=== PATIENT | female | born 1960 | race Caucasian/White ===

== ENCOUNTER 2018-04-08 20:17 | Emergency (ER) | payer BC, OTHER ==
--- NOTE | 2018-04-08 20:57 | ER Document Report ---
ED Medical Screen (RME) - General Chief Complaint: Arm Pain Stated Complaint: RIGHT ARM PAIN Time Seen by Provider: 04/08/18 20:28 Notes: RAPID MEDICAL EVALUATION DISCLOSURE I have seen this patient as part of a Rapid Medical Evaluation and, if applicable, placed any initially appropriate orders. The patient will be seen and fully evaluated, including a full history and physical exam, by a provider ( in Main ED or Fast Track) when a room becomes available. 57-year-old female here with complaints of right upper extremity pain weakness and heaviness that started approximately 12 hours ago. 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 She has not taken anything for the symptoms. She does not have any chest pain shortness of breath palpitations facial asymmetry slurred speech headache vision change. She denies any previous history of stroke. She had similar symptoms one year ago when she was diagnosed with endocarditis however, at that time, she also had shortness of breath and fevers and today does not have these additional symptoms. EXAM CTAB RRR RUE strength 4/5 with intact sensation All other extremities strength 5/5 with intact sensation Finger to nose coordination intact TRAVEL OUTSIDE OF THE [place] IN LAST 30 DAYS: No - Related Data Allergies/Adverse Reactions: No Known Allergies Allergy (Unverified 02/04/12 08:27) Past Medical History - Social History Frequency of alcohol use: Occasional Drug Abuse: None Renal/ Medical History: Denies: Hx Peritoneal Dialysis Musculoskeltal Medical History: Reports Hx Arthritis Past Surgical History: Reports: Hx Tubal Ligation - Immunizations Hx Diphtheria, Pertussis, Tetanus Vaccination: No Physical Exam - Vital signs Vitals: Temp Pulse Resp BP Pulse Ox 99.1 F 62 16 146/58 H 99 04/08/18 20:24 04/08/18 20:24 04/08/18 20:24 04/08/18 20:24 04/08/18 20:24 Course - Vital Signs Vital signs: Temp Pulse Resp BP Pulse Ox 99.1 F 62 16 146/58 H 99 04/08/18 20:24 04/08/18 20:24 04/08/18 20:24 04/08/18 20:24 04/08/18 20:24 Doctor's Discharge - Discharge Referrals: ANU BARROS MD [Primary Care Provider] - Follow up as needed
[2018-04-08 21:18] LABS: ABSOLUTE BASOPHILS # (AUTO) 0.1 10^3/uL (0.0-0.2); ABSOLUTE EOSINOPHILS # (AUTO) 0.2 10^3/uL (0.0-0.6); ABSOLUTE LYMPHOCYTES (AUTO) 1.9 10^3/uL (0.5-4.7); ABSOLUTE MONOCYTES (AUTO) 0.6 10^3/uL (0.1-1.4); ABSOLUTE NEUT (AUTO) 4.8 10^3/uL (1.7-8.2); BASOPHILS % (AUTO) 0.7 % (0-2); HEMATOCRIT 40.2 % (36.0-47.0); HEMOGLOBIN 13.6 g/dL (12.0-15.5); LYMPHOCYTES % (AUTO) 25.6 % (13-45); MEAN CORPUSCULAR VOLUME 91 fl (80-97); MONOCYTES % (AUTO) 8.1 % (3-13); PLATELET COUNT 351 10^3/uL (150-450); RED CELL DISTRIBUTION WIDTH 13.3 % (11.5-14.0); SEGMENTED NEUTROPHILS % (AUTO) 63.6 % (42-78); TOTAL CELLS COUNTED % (AUTO) 100 %; WHITE BLOOD COUNT 7.6 10^3/uL (4.0-10.5)
[2018-04-08 21:25] LABS: INTERNATIONAL RATION (INR) 0.85; PROTHROMBIN TIME 12.1 SEC (11.4-15.4)
[2018-04-08 21:26] LABS: ANION GAP 13 (5-19); BLOOD UREA NITROGEN 23 mg/dL (7-20); CALCIUM 9.9 mg/dL (8.4-10.2); CARBON DIOXIDE 24 mmol/L (22-30); CHLORIDE 106 mmol/L (98-107); GLUCOSE 99 mg/dL (75-110); PARTIAL THROMBOPLASTIN TIME 25.6 SEC (23.5-35.8); POTASSIUM 4.4 mmol/L (3.6-5.0); SODIUM 142.9 mmol/L (137-145)
--- NOTE | 2018-04-08 21:31 | RADIOLOGY REPORT (SQ) ---
EXAM DESCRIPTION: CHEST 2 VIEWS COMPLETED DATE/TIME: 04/08/2018 9:16 pm REASON FOR STUDY: CP endocarditis? COMPARISON: 06/29/2014 EXAM PARAMETERS: NUMBER OF VIEWS: two views TECHNIQUE: Digital Frontal and Lateral radiographic views of the chest acquired. RADIATION DOSE: NA LIMITATIONS: none FINDINGS: LUNGS AND PLEURA: No opacities, masses or pneumothorax. No pleural effusion. MEDIASTINUM AND HILAR STRUCTURES: No masses or contour abnormalities. HEART AND VASCULAR STRUCTURES: Heart normal size. No evidence for failure. BONES: No acute findings. HARDWARE: None in the chest. OTHER: No other significant finding. IMPRESSION: NO ACUTE RADIOGRAPHIC FINDING IN THE CHEST. TECHNICAL DOCUMENTATION: JOB ID: [id number] [employer]- All Rights Reserved Reading location - IP/workstation name: [email or web address]
--- NOTE | 2018-04-08 21:44 | RADIOLOGY REPORT (SQ) ---
EXAM DESCRIPTION: CT HEAD WITHOUT COMPLETED DATE/TIME: 04/08/2018 9:23 pm REASON FOR STUDY: RUE weakness; eval infarct COMPARISON: None. TECHNIQUE: Axial images acquired through the brain without intravenous contrast. Images reviewed wi th bone, brain and subdural windows. Additional sagittal and coronal reconstructions were generated. Images stored on PACS. All CT scanners at this facility use dose modulation, iterative reconstruction, and/or weight based d osing when appropriate to reduce radiation dose to as low as reasonably achievable (ALARA). [facility]: Dose Right [facility]: CareDose [facility]: Dose Right [facility]: Teradose 4D [facility]: Smart [place] RADIATION DOSE: CT Rad equipment meets quality standard of care and radiation dose reduction techniq ues were employed. CTDIvol: 48.6 mGy. DLP: 856 mGy-cm. mGy. LIMITATIONS: None. FINDINGS: VENTRICLES: Normal size and contour. CEREBRUM: No masses. No hemorrhage. No midline shift. No evidence for acute infarction. Normal gra y/white matter differentiation. No areas of low density in the white matter. CEREBELLUM: No masses. No hemorrhage. No alteration of density. No evidence for acute infarction. EXTRAAXIAL SPACES: No fluid collections. No masses. ORBITS AND GLOBE: No intra- or extraconal masses. Normal contour of globe without masses. CALVARIUM: No fracture. PARANASAL SINUSES: No fluid or mucosal thickening. SOFT TISSUES: No mass or hematoma. OTHER: No other significant finding. IMPRESSION: NORMAL BRAIN CT WITHOUT CONTRAST. EVIDENCE OF ACUTE STROKE: NO. COMMENT: Quality ID # [id number]: Final reports with documentation of one or more dose reduction techniques (e.g., Automated exposure control, adjustment of the mA and/or kV according to patient size, use of iterative reconstruction technique) TECHNICAL DOCUMENTATION: JOB ID: [id number] [employer]- All Rights Reserved Reading location - IP/workstation name: [email or web address]
[2018-04-08 23:05] VITALS: BP 133/60
[2018-04-08] MEDS ORDERED: NAPROXEN 250 MG TABLET PO ONE (23:12)
[2018-04-08] MEDS ORDERED: LIDOCAINE 5% (700 MG) TRANSDERMAL ADH..PATCH TP ONE (23:12)
[2018-04-08] MEDS ORDERED: ACETAMINOPHEN 325 MG TABLET PO ONE (23:12)
--- NOTE | 2018-04-08 23:13 | ER Document Report ---
ED General - General Chief Complaint: Arm Pain Stated Complaint: RIGHT ARM PAIN Time Seen by Provider: 04/08/18 20:28 Notes: Patient is a 57 year old female with a past medical history of pericarditis ( please note that the triage assessment is inaccurate and the patient never had endocarditis) but no additional chronic medical problems who presents with approximately 12 hours of left upper extremity pain and heaviness. She describes the pain in the right upper cavity as being a constant, shooting, burning pain that is worsened by movement of her neck or arm. Nothing improves the pain although the patient did take naproxen at home. She has not seen her general doctor regarding today's concerns. She notes that although the area does feel "like it is asleep" she denies any loss of sensation or loss of motor function. She denies a history of similar symptoms in the past. She denies any fever or constitutional symptoms. She denies any discomfort in any other area of her body. No known trauma to the area. TRAVEL OUTSIDE OF THE [place] IN LAST 30 DAYS: No - Related Data Allergies/Adverse Reactions: No Known Allergies Allergy (Verified 04/08/18 22:06) Past Medical History - General Information source: Patient, Relative - Social History Smoking Status: Never Smoker Frequency of alcohol use: Occasional Drug Abuse: None Lives with: Family Family History: Reviewed & Not Pertinent Patient has suicidal ideation: No Patient has homicidal ideation: No Renal/ Medical History: Denies: Hx Peritoneal Dialysis Musculoskeletal Medical History: Reports Hx Arthritis Past Surgical History: Reports: Hx Tubal Ligation - Immunizations Hx Diphtheria, Pertussis, Tetanus Vaccination: No Review of Systems - Review of Systems Notes: Constitutional: Negative for fever. HENT: Negative for sore throat. Eyes: Negative for visual changes. Cardiovascular: Negative for chest pain. Respiratory: Negative for shortness of breath. Gastrointestinal: Negative for abdominal pain, vomiting or diarrhea. Genitourinary: Negative for dysuria. Musculoskeletal: Positive for right upper extremity pain and right shoulder pain Skin: Negative for rash. Neurological: Negative for headaches, positive for paresthesias of the right upper extremity 10 point ROS negative except as marked above and in HPI. Physical Exam - Vital signs Vitals: Temp Pulse Resp BP Pulse Ox 99.1 F 62 16 146/58 H 99 04/08/18 20:24 04/08/18 20:24 04/08/18 20:24 04/08/18 20:24 04/08/18 20:24 Interpretation: Hypertensive Notes: PHYSICAL EXAMINATION: GENERAL: Well-appearing, well-nourished and in no acute distress. HEAD: Atraumatic, normocephalic. EYES: Pupils equal round and reactive to light, extraocular movements intact, sclera anicteric, conjunctiva are normal. ENT: nares patent, oropharynx clear without exudates. Moist mucous membranes. NECK: Normal range of motion, supple without lymphadenopathy LUNGS: Breath sounds clear to auscultation bilaterally and equal. No wheezes rales or rhonchi. HEART: Regular rate and rhythm without murmurs, bedside echocardiogram does not demonstrate any evidence of pericardial effusion ABDOMEN: Soft, nontender, normoactive bowel sounds. No guarding, no rebound. No masses appreciated. EXTREMITIES: Normal range of motion, no pitting or edema. No cyanosis. NEUROLOGICAL: Face symmetric. Tongue protrudes midline. Extraocular motions intact. Pupils are 2 mm and equally reactive. Normal speech, normal gait. 5 out of 5 strength in both the distal and proximal upper and lower extremities bilaterally. Sensation is grossly intact throughout. PSYCH: Normal mood, normal affect. SKIN: Warm, Dry, normal turgor, no rashes or lesions noted. Course - Re-evaluation Re-evalutation: 04/08/18 23:12 Patient presents with signs and symptoms most consistent with a C6-7 cervical nerve root impingement on the right side. She has pain with axial loading with the head tilted toward the right that reproduces her discomfort. RMU motor and sensory distribution including against resistance is unremarkable on the bilateral upper extremities. There has been no trauma to the area. No midline cervical spine tenderness, step-offs or deformities. Contrary to triage assessment: The patient does not have a history of endocarditis. She has a history of pericarditis. A bedside ultrasound does not demonstrate any evidence of a pericardial effusion. EKG without any evidence of a pericarditis. Labs that were sent upfront have been reviewed and are noted to be normal. A CT of the head was also obtained in front and is noted to be normal. Patient has been started on anti-inflammatory medications and recommended for physical therapy and close outpatient follow-up. At this time will discharge with return precautions and follow-up recommendations. Verbal discharge instructions given a the bedside and opportunity for questions given. Medication warnings reviewed. Patient is in agreement with this plan and has verbalized understanding of return precautions and the need for primary care follow-up in the next 24-72 hours. - Vital Signs Vital signs: Temp Pulse Resp BP Pulse Ox 97.7 F 62 15 133/60 H 95 04/08/18 23:32 04/08/18 20:24 04/08/18 23:02 04/08/18 23:02 04/08/18 23:02 - Laboratory Result Diagrams: 04/08/18 21:00 04/08/18 21:00 Laboratory results interpreted by me: 04/08/18 21:00 BUN 23 H - Diagnostic Test Radiology reviewed: Image reviewed, Reports reviewed Radiology results interpreted by me: 04/09/18 03:54 CT head: No acute intracranial bleed or mass Chest x-ray: No acute infiltrate - EKG Interpretation by Me Additional EKG results interpreted by me: 04/09/18 03:54 Sinus rhythm. Rate 64. No ST elevations or depressions. QTC is 440. Discharge - Discharge Clinical Impression: Cervical nerve root impingement, Right arm pain Condition: Good Disposition: HOME, SELF-CARE Additional Instructions: Your pain is related to impingement one of your cervical nerve roots and will take 6-8 weeks completely resolve. Take the naproxen as prescribed for the next 1 week. Take with famotidine 20 mg daily which can be purchased directly over the counter. In addition to this, purchased the product that is sold over-the- counter cold Aspercreme with lidocaine. Apply to the affected area per bottle instructions. You should also apply heat to the area regularly using an electric heating plant pad. Return to the emergency department immediately if you develop weakness, loss of sensation, chest pain, shortness of breath, have worsening of your symptoms, or any other symptoms that are worrisome to you. Prescriptions: Naproxen 500 mg PO BID #14 tablet Referrals: ANU BARROS MD [Primary Care Provider] - Follow up as needed
--- NOTE | 2018-04-09 10:07 | EKG REPORT ---
SEVERITY:- ABNORMAL ECG - SINUS RHYTHM CONSIDER LEFT VENTRICULAR HYPERTROPHY : Confirmed by: Belinda Alexander 09-Apr-2018 10:06:25
== END 2018-04-08 23:32 | disposition home or self-care (01) ==
LOC: ER 20:17
DX: G54.2 Cervical root disorders, not elsewhere classified (principal); R20.2 Paresthesia of skin; M79.601 Pain in right arm
CPT/HCPCS: 36415; 70450; 71046; 80048; 84484; 85025; 85610; 85730; 87040; 93005; 93010; 99284